=== PATIENT | male | born 1945 | race Caucasian/White ===

== ENCOUNTER 2020-01-16 16:10 | Inpatient (IN) | payer MEDICARE, BC ==
[~2020-01-16] VITALS: Ht 182.9 cm; Wt 65.5 kg
--- NOTE | 2020-01-16 16:25 | NUR ---
Pt YESI BEDOYA from [facility] for pneumonia. Pt has hx of parkinsons, NAD, changed into gown, placed on gurney, briefs changed, call light within reach, eye open, even respirations. WCTM
[2020-01-16] MEDS ORDERED: SODIUM CHLORIDE 0.9% 1,000 ML IV ONE (16:31)
[2020-01-16] MEDS ORDERED: CARB1CAP3 PO (16:43)
[2020-01-16] MEDS ORDERED: PRAM0.753 PO (16:43)
[2020-01-16] MEDS ORDERED: THYR15TA PO (16:43)
[2020-01-16] MEDS ORDERED: CEFTRIAXONE PMX 1GM/50ML 50 ML ONE (16:58)
[2020-01-16] MEDS ORDERED: AZITHROMYCIN 500 MG in SODIUM CHLORIDE 0.9% 250 ML IV ONE (17:00)
[2020-01-16] MEDS ORDERED: CEFTRIAXONE PMX 1GM/50ML 50 ML IV ONE (17:00)
[2020-01-16] MEDS ORDERED: SODIUM CHLORIDE FLUSH 10ML SYR IVF ONE (17:00)
--- NOTE | 2020-01-16 17:19 | NUR ---
Pt resting in gurney, eyes closed, respriations heard, call light within reach, NAD, waiting for Rad and lab results, WCTM.
[2020-01-16 17:28] LABS: MEAN CORPUSCULAR HEMOGLOBIN 32.5 pg (27.5-34.5); MEAN CORPUSCULAR HGB CONC 33.1 g/dL (33.2-36.2); MEAN CORPUSCULAR VOLUME 98.2 fL (81-97); PLATELET COUNT 150 x10^3/uL (130-400); RED CELL DISTRIBUTION WIDTH 13.6 % (9.4-14.8)
[2020-01-16 17:41] LABS: ALANINE AMINOTRANSFERASE 17 U/L (12-78); ALBUMIN 2.5 g/dL (3.4-5.0); ANION GAP 7 mmol/L (5-15); CALCIUM 8.7 mg/dL (8.5-10.1); CHLORIDE 108 mmol/L (98-107); CREATININE 0.98 mg/dL (0.7-1.3)
--- NOTE | 2020-01-16 17:42 | NUR ---
pt resting in gurney with blankets, call light in left hand, occasional coughing noted, respirations heard, eyes closed, light dimmed for comfort, NAD, medicating per MAR, waiting for admit bed, WCTM.
[2020-01-16 17:45] LABS: ALKALINE PHOSPHATASE 143 U/L (45-117); BILIRUBIN,TOTAL 2.7 mg/dL (0.2-1.0); TOTAL PROTEIN 7.6 g/dL (6.4-8.2); TROPONIN I < 0.015 ng/mL (0.000-0.045)
--- NOTE | 2020-01-16 18:03 | NUR ---
MED REQUEST SENT TO PHARMACY.
[2020-01-16 18:09] LABS: MD YES
[2020-01-16 18:13] LABS: <RBC MORPHOLOGY> NORMAL; BAND#(MANUAL) 1.55 x10^3/uL; BANDS%(MANUAL) 12 % (0-7); BASOS#(MANUAL) 0.13 x10^3/uL (0-0.1); BASOS% (MANUAL) 1 % (0-1); LYMPH#(MANUAL) 1.16 x10^3/uL (1-3.4); LYMPHS% (MANUAL) 9 % (22-44); MONOS#(MANUAL) 1.42 x10^3/uL (0.3-2.7); MONOS% (MANUAL) 11 % (2-9); SEG#(MANUAL) 8.64 x10^3/uL (1.8-6.8); SEGS% (MANUAL) 67 % (42-75)
[2020-01-16 18:14] LABS: <PLATELET ESTIMATE> ADEQUATE; <PLT MORPHOLOGY> NORMAL PLT MORPH
--- NOTE | 2020-01-16 18:29 | NUR ---
Pt resting in gurney, eyes closed, even respirations, respirations heard, NAD, call light in pt left hand, on monitor, waiting for admit bed, WCTM.
[2020-01-16] MEDS ORDERED: SODIUM CHLORIDE FLUSH 10ML SYR IVF PRN (18:30)
[2020-01-16] MEDS: SODIUM CHLORIDE 0.9% 1,000 ML IV SCH (18:42)
[2020-01-16] MEDS ORDERED: hydrALAzine 20 MG/ML, 1ML IVPush PRN (19:00)
[2020-01-16] MEDS ORDERED: ONDANSETRON 2MG/ML, 2ML IVPush PRN (19:00)
--- NOTE | 2020-01-16 19:00 | NUR ---
Bedside report to [facility], pt care transferred at this time.
--- NOTE | 2020-01-16 19:21 | NUR ---
REPORT RECEIVED FROM GUILLERMO STOKES. [facility]
--- NOTE | 2020-01-16 19:42 | NUR ---
PT IS RESTING IN [facility]. VSS. NAD. NO NEEDS AT THIS TIME
[2020-01-16] MEDS: PRAMIPEXOLE 0.25MG TABLET PO SCH (20:31)
--- NOTE | 2020-01-16 20:40 | NUR ---
SPOKE WITH , LAURA, ON THE PHONE. SHE SAID PT IS ABLE TO SWALLOW 2 PILLS AT A TIME. HOWEVER, THERE IS AN NPO ORDER UNTIL THE PT HAS BEEN EVALULATED BY SPEECH.
[2020-01-16] MEDS: RYTARY PO SCH (21:00)
[2020-01-17] MEDS: CARBIDOPA/LEVODOPA MC SCH ×2 (01:00→08:35)
[2020-01-17 02:28] VITALS: BP 107/68
[2020-01-17 03:53] VITALS: BP 102/66
[2020-01-17 05:11] LABS: RAPID INFLUENZA A Negative (Negative); RAPID INFLUENZA B Negative (Negative)
[2020-01-17] MEDS ORDERED: THYROID 30 MG TABLET PO SCH (06:00)
[2020-01-17 06:09] VITALS: BP 120/75
[2020-01-17 06:27] LABS: ANION GAP 9 mmol/L (5-15); CALCIUM 8.5 mg/dL (8.5-10.1); CHLORIDE 112 mmol/L (98-107); CREATININE 0.85 mg/dL (0.7-1.3)
[2020-01-17 06:39] LABS: BASOPHILS % (AUTO) 0 % (0-1); EOSINOPHILS % (AUTO) 0 % (1-7); LYMPHOCYTES % (AUTO) 9 % (22-44); MD NO; MEAN CORPUSCULAR HEMOGLOBIN 32.8 pg (27.5-34.5); MEAN CORPUSCULAR HGB CONC 33.3 g/dL (33.2-36.2); MEAN CORPUSCULAR VOLUME 98.4 fL (81-97); MONOCYTES # (AUTO) 0.66 x10^3/uL (0.2-0.8); MONOCYTES % (AUTO) 8 % (2-9); NEUTROPHILS # (AUTO) 6.68 x10^3/uL (1.8-6.8); NEUTROPHILS % (AUTO) 83 % (42-75); PLATELET COUNT 159 x10^3/uL (130-400); RED BLOOD COUNT 3.73 x10^6/uL (4.38-5.82); RED CELL DISTRIBUTION WIDTH 14.1 % (9.4-14.8)
[2020-01-17] MEDS: PRAMIPEXOLE 0.25MG TABLET PO SCH (08:35)
[2020-01-17] MEDS: RYTARY PO SCH (08:35)
[2020-01-17] MEDS: SODIUM CHLORIDE 0.9% 1,000 ML IV SCH (09:00)
[2020-01-17] MEDS ORDERED: ACETAMINOPHEN 100 ML IVPB ONE (11:00)
[2020-01-17 13:01] VITALS: BP 105/58
--- NOTE | 2020-01-17 13:17 | NUR ---
REC SNF; REC NPO Addendum: 01/17/20 at [address] Amended: Links added.
[2020-01-17] MEDS ORDERED: ONDANSETRON 2MG/ML, 2ML IVPush PRN (15:30)
[2020-01-17] MEDS ORDERED: ATROPINE OPHTH SOLN 1%, 5ML PO PRN (15:30)
[2020-01-17] MEDS ORDERED: LORazepam 2 MG/ML, 1ML IVPush PRN (15:30)
[2020-01-17] MEDS ORDERED: CEFTRIAXONE PMX 1GM/50ML 50 ML IV SCH (17:00)
[2020-01-17] MEDS ORDERED: AZITHROMYCIN 500 MG in SODIUM CHLORIDE 0.9% 250 ML IV SCH (18:00)
[2020-01-17 20:57] VITALS: BP 122/75
[2020-01-17] MEDS: SENNOSIDES 8.6 MG TABLET PO SCH (21:00)
[2020-01-17] MEDS: DOCUSATE 100 MG CAPSULE PO SCH (21:00)
[2020-01-17] MEDS: MORPHINE SULFATE 4 MG/ML, 1ML IVPush PRN (21:07)
[2020-01-17] MEDS: SODIUM CHLORIDE FLUSH 10ML SYR IVF SCH (21:07)
[2020-01-18 00:48] VITALS: BP 105/72
[2020-01-18 08:53] VITALS: BP 123/75
[2020-01-18] MEDS: SODIUM CHLORIDE FLUSH 10ML SYR IVF SCH ×2 (09:00→19:17)
[2020-01-18] MEDS: DOCUSATE 100 MG CAPSULE PO SCH ×2 (09:00→21:00)
[2020-01-18] MEDS: SENNOSIDES 8.6 MG TABLET PO SCH ×2 (09:00→21:00)
[2020-01-18] MEDS: MORPHINE SULFATE 4 MG/ML, 1ML IVPush PRN (13:52)
[2020-01-19] MEDS: SENNOSIDES 8.6 MG TABLET PO SCH (08:21)
[2020-01-19] MEDS: DOCUSATE 100 MG CAPSULE PO SCH (08:21)
[2020-01-19] MEDS: SODIUM CHLORIDE FLUSH 10ML SYR IVF SCH (08:55)
[2020-01-19] MEDS: MORPHINE SULFATE 4 MG/ML, 1ML IVPush PRN (11:15)
== END 2020-01-19 11:49 | disposition hospice, home (50) | DRG 871 ==
LOC: ED 17:05 → EDIP 18:19 → 3E 21:06 → 3N 01-18 11:50
PROVIDERS: ADMIT Internal Medicine; ATTEND Hospitalist
DX: A41.9 Sepsis, unspecified organism (principal); J69.0 Pneumonitis due to inhalation of food and vomit; R09.02 Hypoxemia; E03.9 Hypothyroidism, unspecified; G20 Parkinson's disease; R13.10 Dysphagia, unspecified; Z51.5 Encounter for palliative care; Z66 Do not resuscitate; R65.20 Severe sepsis without septic shock; Z20.828 Contact with and (suspected) exposure to other viral communicable diseases
CPT/HCPCS: 36415; 71045; 80048; 80053; 83605; 84145; 84484; 85025; 87040; 87400; 93005; G0378; J0131; J0456; J0696; J2270; J7030; J7050